=== PATIENT | male | born 1990 | race African-American/Black ===

== ENCOUNTER 2016-05-02 15:41 | Emergency (ER) | payer SELFPAY ==
[2016-05-02] MEDS ORDERED: Clindamycin 300 MG/2 ML VIAL ONE (15:54)
[2016-05-02] MEDS ORDERED: Sodium Chloride 0.9% 0 ML ONE (15:56)
[2016-05-02] MEDS ORDERED: Sodium Chloride 0.9% 100 ML ONE (15:57)
[2016-05-02] MEDS ORDERED: Ketorolac Tromethamine 30 MG/ML VIAL ONE (16:01)
[2016-05-02] MEDS ORDERED: HYDROcodone/Acetaminophen 5/325 mg Tablet ONE (16:01)
--- NOTE | 2016-05-02 16:47 | ERRECORD ---
[facility] EMERGENCY RECORD HPI TOOTHACHE (16:28 AGRE) CHIEF COMPLAINT: Patient presents for evaluation of toothache, Patient presents for evaluation of jaw swelling. HISTORIAN: History provided by patient, SWELLING AND PAIN OVER THE RIGHT UPPER JAW FOR 2 DAYS, WORST TODAY. NO FEVER, CHILLS, NAUSEA, VOMITING OR OTHER SYMPTOMS. LOCATION: Symptoms are localized, most severe to RIGHT UPPER JAW. QUALITY: Pain is dull in nature, described as aching, described as pressure-like, described as throbbing. SEVERITY: Maximum severity of symptoms severe, Currently symptoms are mild. TIME COURSE: Gradual onset of symptoms, Symptoms are worsening. ASSOCIATED WITH: Associated with facial pain, Associated with facial swelling. EXACERBATED BY: Patient's condition exacerbated by nothing. RELIEVED BY: Patient's condition relieved by nothing. ROS (16:36 AGRE) CONSTITUTIONAL: Historian denies chills, denies fever, denies lethargy, denies malaise. EYES: Historian denies eye pain, denies eye redness. ENT: Historian denies rhinorrhea, denies sinus pain, denies sore throat. CARDIOVASCULAR: Historian denies chest pain, denies dyspnea on exertion. RESPIRATORY: Historian denies cough, denies shortness of breath. GI: Historian denies abdominal pain, denies nausea, denies vomiting. MUSCULOSKELETAL: Historian denies back pain, denies neck pain. SKIN: Negative skin review of systems, Historian denies skin changes, denies skin lesions. NEUROLOGIC: Historian denies headache, denies mental status changes. PSYCHIATRIC: Negative psychiatric review of systems, Historian denies anxiety. PAST MEDICAL HISTORY (15:46 BDON) MEDICAL HISTORY: Tetanus immunization up to date, No past medical history, Flu vaccine not up to date,. MALE SURGICAL HISTORY: Patient has no surgical history. PSYCHIATRIC HISTORY: No previous psychiatric history. SOCIAL HISTORY: Patient denies alcohol use, Patient denies drug use, Patient has no smoking history. KNOWN ALLERGIES Penicillins CURRENT MEDICATIONS (15:45 BDON) &a-1R&a+25V*p+0X*m7844F*c202B*c15G*c2P*p-0X&a-25V&a+1R Name: Dave Aponte : 1990 M25 MedRec: [id number] AcctNum: [id number] Prepared: ThuMay 05, 2016 12:25 by Interface Page 1 of 3 pMD [facility] EMERGENCY RECORD None VITAL SIGNS VITAL SIGNS: BP: 135/79, Pulse: 70, Resp: 18, Temp: 96.5 (Oral), Pain: 4, Time: 05/02/2016 15:43. (15:43 BDON) Pulse: 78, Resp: 18, Pain: 3, Time: 05/02/2016 17:23. (17:23 BDON) PHYSICAL EXAM (16:36 AGRE) CONSTITUTIONAL: Vital signs reviewed, Patient afebrile, Patient appears non toxic, Patient appears pain free, Patient alert and oriented to person, place and time, NURSES NOTES REVIEWED. HEAD: Head exam included findings of head atraumatic, normocephalic. EYES: Eye exam included findings of eyelids normal to inspection, Extraocular muscles intact, Conjunctiva normal, Sclera normal. ENT: Ear exam normal, Nose exam normal, Pharynx exam normal, Uvula exam normal, Tonsil exam normal, Mouth exam normal, Teeth with, poor dentition, dental caries, abscess, SWELLING AND TENDERNESS WITHOUT ERYTHEMA OVER THE RIGHT MAXILLAE. NO POINTING ABSCESS. NECK: Neck exam included findings of normal range of motion, no meningeal signs, no cervical adenopathy. RESPIRATORY CHEST: Respiratory exam included findings of no respiratory distress, Chest exam included findings of chest movement symmetrical. BACK: Back exam included findings of normal inspection, range of motion normal. UPPER EXTREMITY: Upper extremity exam included findings of inspection normal, Range of motion normal. LOWER EXTREMITY: Lower extremity exam included findings of inspection normal, Range of motion normal. NEURO: Neuro exam findings include patient oriented to person, place and time, Speech normal, Gait normal, Memory normal, Cranial nerves intact, no focal motor deficits. SKIN: Skin exam included findings of skin warm, dry, and normal in color. PSYCHIATRIC: Psychiatric exam normal, Normal affect. MEDICATION ADMINISTRATION SUMMARY Drug Name: Toradol injection, Dose Ordered: 30 mg, Route: IV Push, Status: Given, Time: 16:06 05/02/2016, Drug Name: HYDROcodone-acetaminophen, Dose Ordered: 5/325 tab(s), Route: Oral, Status: Given, Time: 16:05 05/02/2016, Drug Name: clindamycin intravenous, Dose Ordered: 600 mg, Route: IV Piggy Back, Status: Given, Time: 16:04 05/02/2016, Detailed record available in Medication Service section. DOCTOR NOTES (16:41 AGRE) RE-EVALUATION: Routine re-evaluation, after administration of &a-1R&a+25V*p+0X*i9585P*c202B*c15G*c2P*p-0X&a-25V&a+1R Name: Dave Aponte : 1990 M25 MedRec: [id number] AcctNum: [id number] Prepared: ThuMay 05, 2016 12:25 by Interface Page 2 of 3 pMD [facility] EMERGENCY RECORD analgesics, The patient's condition has improved. 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 HE EXPRESSED UNDERSTANDING AND AGREEMENT. PATIENT STATUS: Patient has improved since arrival to emergency department. PATIENT PLAN: The patient will be discharged. DATA REVIEWED: Discussed with family. PROBLEM LIST No recorded problems DIAGNOSIS (16:24 AGRE) FINAL: PRIMARY: dental abscess. PRESCRIPTION Ultram: TABLET : 50 mg : ORAL : Quantity: 1 Unit: tab(s) Route: ORAL Schedule: every 6 hours PRN Dispense: 12 May substitute. Refills: No Refills . (16:25 AGRE) NOTES: No Refills. (16:25 AGRE) clindamycin HCl: CAPSULE : 150 mg : ORAL : Quantity: 300 Unit: mg Route: ORAL Schedule: 3 times a day Dispense: 60 May substitute. Refills: No Refills . (16:25 AGRE) NOTES: ^s=No Refills No Refills. (16:25 AGRE) clindamycin HCl (REPRINT): CAPSULE : 150 mg : ORAL : Quantity: 300 Unit: mg Route: ORAL Schedule: 3 times a day Dispense: 60 May substitute. Refills: No Refills . (16:46 AGRE) Ultram (REPRINT): TABLET : 50 mg : ORAL : Quantity: 1 Unit: tab(s) Route: ORAL Schedule: every 6 hours PRN Dispense: 12 May substitute. Refills: No Refills . (16:46 AGRE) DISPOSITION PATIENT: Disposition Type: Discharge, Disposition: *Discharge Home, Condition: Improved. (16:24 AGRE) Patient left the department. (17:28 BDON) Gonzales: AGRE=MD Evens, Ian BDON=LAUREN Sarabia, Kailey &a-1R&a+25V*p+0X*j8740S*c202B*c15G*c2P*p-0X&a-25V&a+1R Name: Dave Aponte : 1990 M25 MedRec: [id number] AcctNum: [id number] Prepared: ThuMay 05, 2016 12:25 by Interface Page 3 of 3 pMD MTDD
--- NOTE | 2016-05-02 16:59 | PICIS ---
[facility] EMERGENCY RECORD TRIAGE (ThuMay 02, 2016 15:45 BDON) TRIAGE NOTES: Top right back dental pain with cheek swelling. (ThuMay 02, 2016 15:45 BDON) PATIENT: NAME: Dave Aponte, AGE: 25, GENDER: male, : Sat 1990, TIME OF GREET: ThuMay 02, 2016 15:41, PREFERRED LANGUAGE: Slovenian, ETHNICITY: Not or , ECODE BILLING MAP: [facility], SSN: [id number], Zip Code: [address], KG WEIGHT: 79.38, PHONE: , , , PERSON ID: [id number], PCP: none. (ThuMay 02, 2016 15:45 BDON) COMPLAINT: DENTAL PAIN. (ThuMay 02, 2016 15:45 BDON) ADMISSION: URGENCY: 3 Urgent, ADMISSION SOURCE: Home, TRANSPORT: Walk-in, BED: TRIAGE. (ThuMay 02, 2016 15:45 BDON) ASSESSMENT: Assessment: Right top back toothache with facial swelling, Symptoms began yesterday. (15:46 BDON) TREATMENTS IN PROGRESS: Treatments given Prehospital: none. (15:46 BDON) PROVIDERS: TRIAGE NURSE: Kailey Sarabia RN. (ThuMay 02, 2016 15:45 BDON) VITAL SIGNS: BP 135/79, Pulse 70, Resp 18, Temp 96.5, (Oral), Pain 4, Time 05/02/2016 15:43. (15:43 BDON) PREVIOUS VISIT ALLERGIES: Penicillins. (ThuMay 02, 2016 15:45 BDON) Penicillins. (15:46 BDON) KNOWN ALLERGIES Penicillins CURRENT MEDICATIONS (15:45 BDON) None VITAL SIGNS VITAL SIGNS: BP: 135/79, Pulse: 70, Resp: 18, Temp: 96.5 (Oral), Pain: 4, Time: 05/02/2016 15:43. (15:43 BDON) Pulse: 78, Resp: 18, Pain: 3, Time: 05/02/2016 17:23. (17:23 BDON) NURSING PROCEDURE: DISCHARGE NOTE (17:18 BDON) DISCHARGE: Patient discharged to home, ambulating without assistance, accompanied by friend, Summary of Care printed/ provided, Patient requested and was provided an electronic copy of Discharge Instructions, Transition record given to patient, Discharge instructions given to patient, Simple or moderate discharge teaching performed, Prescriptions given and instructions on side effects given, Medication reconciliation form given, Above person(s) verbalized understanding of discharge instructions and follow-up care, Patient treated and evaluated by physician. NURSING PROCEDURE: IV PATIENT IDENITIFIER: Patient actively involved in identification process. (15:57 BDON) &a-1R&a+25V*p+0X*x7065Q*c202B*c15G*c2P*p-0X&a-25V&a+1R Name: Dave Aponte : 1990 M25 MedRec: [id number] AcctNum: [id number] Prepared: ThuMay 05, 2016 12:25 by Interface Page 1 of 6 D [facility] EMERGENCY RECORD Patient actively involved in identification process. (17:15 BDON) IV SITE 1: IV therapy indicated for medication administration, IV established, to the right antecubital, using a 20 gauge catheter, in one attempt. (15:57 BDON) FOLLOW-UP SITE 1: IV discontinued, due to patient being discharged, catheter intact. (17:15 BDON) SAFETY: Cart/Stretcher in lowest position, Hospital ID band on, Patient in view of the nursing station. (17:15 BDON) NURSING PROCEDURE: NURSE NOTES (17:15 BDON) NURSES NOTES: Notes: right cheek decrease in size. ORDER DETAILS Order Name: SALINE LOCK, Status: Done, Time: 16:11 05/02/2016, User: BDON, - Ordered for: MD Horner Andrea, - Entered by: MD Horner Andrea - ThuMay 02, 2016 15:52, - Quantity: 1. MEDICATION ADMINISTRATION SUMMARY Drug Name: Toradol injection, Dose Ordered: 30 mg, Route: IV Push, Status: Given, Time: 16:06 05/02/2016, Drug Name: HYDROcodone-acetaminophen, Dose Ordered: 5/325 tab(s), Route: Oral, Status: Given, Time: 16:05 05/02/2016, Drug Name: clindamycin intravenous, Dose Ordered: 600 mg, Route: IV Piggy Back, Status: Given, Time: 16:04 05/02/2016, Detailed record available in Medication Service section. MEDICATION SERVICE clindamycin intravenous: Order: clindamycin intravenous (clindamycin phosphate) - Dose: 600 mg : IV Piggy Back Ordered by: Ian Horner MD Entered by: Ian Horner MD ThuMay 02, 2016 15:51 Documented as given by: Jeanie Dorman RN ThuMay 02, 2016 16:04 Patient, Medication, Dose, Route and Time verified prior to administration. Amount given: 600mg, IV SITE #1 IVPB or drip, initial infusion, IVPB mixed in: 100ml, Fluid: 0.9NS, via primary tubing, on an IV pump, at 100 ml/hr, Awake and alert- acceptable, Connections checked prior to administration, Line traced prior to administration, Catheter placement confirmed via flush prior to administration, IV site without signs or symptoms of infiltration during medication administration, No swelling during administration, No drainage during administration, IV flushed after administration, Correct patient, time, route, dose and medication confirmed prior to administration, Patient advised of actions and side-effects prior to administration, Allergies confirmed and medications reviewed prior to administration, Patient in position of comfort, Side rails up, Cart in lowest &a-1R&a+25V*p+0X*g7203E*c202B*c15G*c2P*p-0X&a-25V&a+1R Name: Dave Aponte : 1990 M25 MedRec: [id number] AcctNum: [id number] Prepared: ThuMay 05, 2016 12:25 by Interface Page 2 of 6 pMD [facility] EMERGENCY RECORD position, Family at bedside. : Follow Up : _IV SITE #1:_, Medication infusion discontinued, on ThuMay 02, 2016 17:06, Total infusion time IV site 1 1 hour, 5 minutes, ., Total amount infused: 100ml, IV Line flushed after administration. (17:05 MSPE) HYDROcodone-acetaminophen: Order: HYDROcodone-acetaminophen (hydrocodone bitartrate/acetaminophen) - Dose: 5/325 tab(s) : Oral Ordered by: Ian Horner MD Entered by: Ian Horner MD ThuMay 02, 2016 15:52 Documented as given by: Kailey Sarabia RN ThuMay 02, 2016 16:05 Patient, Medication, Dose, Route and Time verified prior to administration. Site: Medication administered P.O., Correct patient, time, route, dose and medication confirmed prior to administration, Patient advised of actions and side-effects prior to administration, Allergies confirmed and medications reviewed prior to administration, Patient in position of comfort, Cart in lowest position, Friend at bedside. Toradol injection: Order: Toradol injection (ketorolac tromethamine) - Dose: 30 mg : IV Push Ordered by: Ian Horner MD Entered by: Ian Horner MD ThuMay 02, 2016 15:52 Documented as given by: Kailey Sarabia RN ThuMay 02, 2016 16:06 Patient, Medication, Dose, Route and Time verified prior to administration. Amount given: 30 MG, IV SITE #1 IVP. : Follow Up : _IV SITE #1:_, IV PUSH. (16:07 BDON) HPI TOOTHACHE (16:28 AGRE) CHIEF COMPLAINT: Patient presents for evaluation of toothache, Patient presents for evaluation of jaw swelling. HISTORIAN: History provided by patient, SWELLING AND PAIN OVER THE RIGHT UPPER JAW FOR 2 DAYS, WORST TODAY. NO FEVER, CHILLS, NAUSEA, VOMITING OR OTHER SYMPTOMS. LOCATION: Symptoms are localized, most severe to RIGHT UPPER JAW. QUALITY: Pain is dull in nature, described as aching, described as pressure-like, described as throbbing. SEVERITY: Maximum severity of symptoms severe, Currently symptoms are mild. TIME COURSE: Gradual onset of symptoms, Symptoms are worsening. ASSOCIATED WITH: Associated with facial pain, Associated with facial swelling. EXACERBATED BY: Patient's condition exacerbated by nothing. RELIEVED BY: Patient's condition relieved by nothing. ROS (16:36 AGRE) CONSTITUTIONAL: Historian denies chills, denies fever, denies lethargy, denies malaise. &a-1R&a+25V*p+0X*w3061O*c202B*c15G*c2P*p-0X&a-25V&a+1R Name: Dave Aponte : 1990 M25 MedRec: [id number] AcctNum: [id number] Prepared: ThuMay 05, 2016 12:25 by Interface Page 3 of 6 pMD [facility] EMERGENCY RECORD EYES: Historian denies eye pain, denies eye redness. ENT: Historian denies rhinorrhea, denies sinus pain, denies sore throat. CARDIOVASCULAR: Historian denies chest pain, denies dyspnea on exertion. RESPIRATORY: Historian denies cough, denies shortness of breath. GI: Historian denies abdominal pain, denies nausea, denies vomiting. MUSCULOSKELETAL: Historian denies back pain, denies neck pain. SKIN: Negative skin review of systems, Historian denies skin changes, denies skin lesions. NEUROLOGIC: Historian denies headache, denies mental status changes. PSYCHIATRIC: Negative psychiatric review of systems, Historian denies anxiety. PAST MEDICAL HISTORY (15:46 BDON) MEDICAL HISTORY: Tetanus immunization up to date, No past medical history, Flu vaccine not up to date,. MALE SURGICAL HISTORY: Patient has no surgical history. PSYCHIATRIC HISTORY: No previous psychiatric history. SOCIAL HISTORY: Patient denies alcohol use, Patient denies drug use, Patient has no smoking history. PHYSICAL EXAM (16:36 AGRE) CONSTITUTIONAL: Vital signs reviewed, Patient afebrile, Patient appears non toxic, Patient appears pain free, Patient alert and oriented to person, place and time, NURSES NOTES REVIEWED. HEAD: Head exam included findings of head atraumatic, normocephalic. EYES: Eye exam included findings of eyelids normal to inspection, Extraocular muscles intact, Conjunctiva normal, Sclera normal. ENT: Ear exam normal, Nose exam normal, Pharynx exam normal, Uvula exam normal, Tonsil exam normal, Mouth exam normal, Teeth with, poor dentition, dental caries, abscess, SWELLING AND TENDERNESS WITHOUT ERYTHEMA OVER THE RIGHT MAXILLAE. NO POINTING ABSCESS. NECK: Neck exam included findings of normal range of motion, no meningeal signs, no cervical adenopathy. RESPIRATORY CHEST: Respiratory exam included findings of no respiratory distress, Chest exam included findings of chest movement symmetrical. BACK: Back exam included findings of normal inspection, range of motion normal. UPPER EXTREMITY: Upper extremity exam included findings of inspection normal, Range of motion normal. LOWER EXTREMITY: Lower extremity exam included findings of inspection normal, Range of motion normal. NEURO: Neuro exam findings include patient oriented to person, &a-1R&a+25V*p+0X*i4379L*c202B*c15G*c2P*p-0X&a-25V&a+1R Name: Dave Aponte : 1990 M25 MedRec: [id number] AcctNum: [id number] Prepared: ThuMay 05, 2016 12:25 by Interface Page 4 of 6 pMD [facility] EMERGENCY RECORD place and time, Speech normal, Gait normal, Memory normal, Cranial nerves intact, no focal motor deficits. SKIN: Skin exam included findings of skin warm, dry, and normal in color. PSYCHIATRIC: Psychiatric exam normal, Normal affect. EVENTS TRANSFER: Triage to Emergency Triage. (ThuMay 02, 2016 15:45 BDON) Emergency Triage to Emergency Room -04. (15:45 BDON) Removed from Emergency Emergency Room -04. (17:28 BDON) DOCTOR NOTES (16:41 AGRE) RE-EVALUATION: Routine re-evaluation, after administration of analgesics, The patient's condition has improved. 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 HE EXPRESSED UNDERSTANDING AND AGREEMENT. PATIENT STATUS: Patient has improved since arrival to emergency department. PATIENT PLAN: The patient will be discharged. DATA REVIEWED: Discussed with family. PROBLEM LIST No recorded problems DIAGNOSIS (16:24 AGRE) FINAL: PRIMARY: dental abscess. DISPOSITION PATIENT: Disposition Type: Discharge, Disposition: *Discharge Home, Condition: Improved. (16:24 AGRE) Patient left the department. (17:28 BDON) INSTRUCTION (16:27 AGRE) DISCHARGE: DENTAL ABSCESS. SPECIAL: IN ADDITION TO THE PRESCRIPTION MEDICATIONS TAKE MOTRIN 600 MG EVERY 6 HOURS FOR INFLAMMATION AND PAIN. SEE A DENTIST IN ONE WEEK. SEE A PHYSICIAN SOONER IF WORSENING OR IF NEW SYMTPOMS DEVELOP. PRESCRIPTION Ultram: TABLET : 50 mg : ORAL : Quantity: 1 Unit: tab(s) Route: ORAL Schedule: every 6 hours PRN Dispense: 12 May substitute. Refills: No Refills . (16:25 AGRE) NOTES: No Refills. (16:25 AGRE) clindamycin HCl: CAPSULE : 150 mg : ORAL : Quantity: 300 Unit: mg Route: ORAL Schedule: 3 times a day Dispense: 60 May substitute. Refills: No Refills . (16:25 AGRE) NOTES: ^s=No Refills No Refills. (16:25 AGRE) &a-1R&a+25V*p+0X*n7782D*c202B*c15G*c2P*p-0X&a-25V&a+1R Name: Dave Aponte : 1990 M25 MedRec: [id number] AcctNum: [id number] Prepared: ThuMay 05, 2016 12:25 by Interface Page 5 of 6 pMD [facility] EMERGENCY RECORD clindamycin HCl (REPRINT): CAPSULE : 150 mg : ORAL : Quantity: 300 Unit: mg Route: ORAL Schedule: 3 times a day Dispense: 60 May substitute. Refills: No Refills . (16:46 AGRE) Ultram (REPRINT): TABLET : 50 mg : ORAL : Quantity: 1 Unit: tab(s) Route: ORAL Schedule: every 6 hours PRN Dispense: 12 May substitute. Refills: No Refills . (16:46 AGRE) IMAGING (17:27 BDON) *DISCHARGE INSTRUCTIONS RECEIPT: Image captured from scanner. *SUPPLY CHARGE SHEET: Image captured from scanner. ADMIN DIGITAL SIGNATURE: MD Horner Andrea. (16:42 AGRE) LAUREN Sarabia Bettye. (17:28 BDON) MD Horner Andrea. (ThuMay 05, 2016 12:17 AGRE) Gonzales: AGRE=MD Horner Andrea BDON=LAUREN Sarabia Bettye MSPE=LAUREN Dorman Marilyn &a-1R&a+25V*p+0X*i5171N*c202B*c15G*c2P*p-0X&a-25V&a+1R Name: Dave Aponte : 1990 M25 MedRec: [id number] AcctNum: [id number] Prepared: ThuMay 05, 2016 12:25 by Interface Page 6 of 6 pMD MTDD
== END 2016-05-02 17:18 | disposition home or self-care (01) ==
LOC: NAV ERS 15:41
DX: K04.7 Periapical abscess without sinus (principal)
CPT/HCPCS: 96365; 96375; J1885; J3490; J7050

== ENCOUNTER 2016-08-12 18:21 | Emergency (ER) | payer SELFPAY | END 2016-08-12 19:10 | disposition home or self-care (01) | LOC: NAV ERS 18:21 | DX: J06.9 Acute upper respiratory infection, unspecified (principal) | CPT/HCPCS: 87081; 87430; 99283 ==